=== PATIENT | female | born 1990 | race Two or more races ===

== ENCOUNTER 2023-10-17 12:48 | Emergency (ER) | payer OTHER ==
[~2023-10-17] VITALS: Ht 157.5 cm; Wt 54.9 kg
[2023-10-17 15:26] LABS: HEMATOCRIT 41.2 % (36.0-45.00); HEMOGLOBIN 13.3 g/dL (12.0-15.00); MEAN CELL VOLUME 79.9 fL (80.00-100.00); MEAN CORPUSCULAR HEMOGLOBIN 25.8 pg (27.00-32.0); MEAN CORPUSCULAR HGB CONC 32.3 g/dl (32.0-36.0); PLATELET COUNT 339 K/uL (150-450); RED BLOOD COUNT 5.16 M/uL (4.00-6.00); RED CELL DISTRIBUTION WIDTH 17.1 % (11.5-14.5)
[2023-10-17 15:51] LABS: BILIRUBIN TOTAL 0.32 mg/dL (0.3-1.2); CALCIUM 9.6 mg/dL (8.5-10.1); CREATININE SERUM 0.69 mg/dL (0.55-1.02); GFR 97.39; GLOBULINA 4.3 G/DL (2.4-3.5); POTASSIUM 3.83 mEq/L (3.5-5.1); TOTAL PROTEIN 8.3 gm/dL (6.4-8.2)
[2023-10-17 17:07] LABS: PH,URINE 5.5 (5.0-8.0); URINE APPEARANCE Turbid; URINE BILIRRUBIN Negative (NEGATIVE); URINE BLOOD Negative; URINE COLOR Dark Yellow; URINE GLUCOSE Negative (NEGATIVE); URINE LEUKOCYTE Small; URINE NITRATE Negative; URINE PROTEIN 30 (NEGATIVE)
[2023-10-17 17:11] LABS: URINE BACTERIA 2075.1 uL (0.0-1933); URINE WBC 111.9 uL (0.0-23.2)
== END 2023-10-17 18:19 | disposition home or self-care (01) ==
LOC: ER 12:49
PROVIDERS: General Practice
DX: N39.0 Urinary tract infection, site not specified (principal); R10.2 Pelvic and perineal pain; Z91.013 Allergy to seafood; Z91.018 Allergy to other foods